=== PATIENT | male | born 1950 | race Caucasian/White ===

== ENCOUNTER → 2016-08-05 | Outpatient (CLI) | payer MEDICARE, OTHER ==
[~2016-08-05] MED LIST: ALPRAZOLAM PO; ANTI INFLAMMATORY; NORCO 10-325 TA1 TAB PO; PEGASYS180 MCG/M1 SQ; REGLAN10 MG PO; XANAX0.5 MG PO; [UNRECOGNIZED DRUG - OTHER] PO
== END | disposition home or self-care (01) ==
LOC: CLAB 13:27
DX: C61 Malignant neoplasm of prostate (principal)
CPT/HCPCS: 36415; 84153

== ENCOUNTER 2016-11-14 10:54 | Emergency (ER) | payer MEDICARE, OTHER ==
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
--- NOTE | ~2016-11-14 | CR72 ---
[facility] A Service of [facility] & [facility] RADIOLOGY TEXT RESULTS PATIENT: TITA CARRION LOCATION: [facility] : 50 UNIT #: [id number] AGE: [address]: Jerome Bailey MD SEX: M ORDER DR: [id number] [facility] [address] [place], [place] [address] [id number] E MR#: [id number] Acc #: [id number] NAME: TITA CARRION : 1950 SEX: M STUDY DATE/TIME: 11/14/2016 12:44 UNIT: [facility] ROOM: STUDY DESCRIPTION: CR Chest Single View Portable Attending Physician: Jerome Bailey M.D. Ordering Physician: Jerome Bailey M.D. Primary Care Physician: Stephanie Amaro M.D. MEDICAL IMAGING REPORT This report is preliminary unless electronic signature is present EXAM Portable chest radiograph. INDICATION Shortness of breath, abdominal pain, and nausea starting today. FINDINGS Heart size is within normal limits. There is some coarsening of the interstitium which is unchanged when compared to prior studies. There is a stable scarring identified at the left lung base, unchanged when compared to February of 2016. No pneumothorax or pleural effusion is seen. No definite acute infiltrates are identified. Dictated by... Lois Jimenes M.D. THIS IS AN ELECTRONICALLY VERIFIED REPORT Lois Jimenes M.D. at 11/14/2016 4:56 PM AFF/tmw TD: 11/14/2016 14:44 JOB #: [id number] MEDICAL IMAGING REPORT Page 1 of 1 COPY
--- NOTE | ~2016-11-14 | EKG ---
PATIENT: TITA CARRION UNIT #: [id number] Ventricular Rate: 76 BPM Atrial Rate: 76 BPM P-R Interval: 184 ms QRS Duration: 84 ms Q-T Interval: 404 ms QTC Calculation(Bezet): 454 ms P [place]: 52 degrees Calculated R [place]: 31 degrees Calculated T [place]: 66 degrees Diagnosis Line: Normal sinus rhythm Diagnosis Line: Normal ECG Diagnosis Line: No previous ECGs available Diagnosis Line: Confirmed by NEHA DOMINGUEZ MD ([id number]) on Diagnosis Line: 11/15/2016 8:00:15 AM INTERPRETING MD: ALBERTO TORREZ
[2016-11-14 12:53] LABS: POC - CKMB 18.6 ng/mL (0.0-7.9); POC - TROPONIN <0.05 ng/mL (<=0.05)
[2016-11-14 12:57] LABS: BASOPHIL% 0.4 % (0-2.5); EOSINOPHIL# 0.2 X10e3 (0-0.7); EOSINOPHIL% 2.5 % (0.0-7.0); HEMATOCRIT 37.1 % (38.0-50.0); HEMOGLOBIN 12.4 gm/dL (13.0-16.0); LYMPHOCYTE# 1.6 X10e3 (1.0-3.5); LYMPHOCYTE% 16.8 % (17.0-45.0); MEAN CELL VOLUME 92.6 FL (83-96); MEAN CORPUSCULAR HEMOGLOBIN 30.9 PG (28-34); MEAN CORPUSCULAR HGB CONC 33.4 g/dL (30-36); MEAN PLATELET VOLUME 7.6 FL (6.5-11.5); MONOCYTE# 0.8 X10e3 (0-1.0); MONOCYTE% 9.1 % (3.0-12.0); NEUTROPHIL# 6.6 X10e3 (1.5-7.1); NEUTROPHIL% 71.2 % (40-75); PLATELET COUNT 272 X10e3 (140-420); RED CELL DISTRIBUTION WIDTH 13.2 % (11.0-15.5); WHITE BLOOD COUNT 9.2 X10e3 (4.0-10.5)
[2016-11-14 13:01] LABS: DIFF IND NO
[2016-11-14 13:24] LABS: ALBUMIN SERUM 3.9 g/dL (3.5-5.0); BILIRUBIN, DIRECT 0.1 mg/dL (0.0-0.2); BILIRUBIN,INDIRECT 0.6 mg/dL (0.0-0.9); BILIRUBIN,TOTAL 0.7 mg/dL (0.2-2.0); BUN/CREATININE RATIO 15.55; CALCIUM SERUM 8.6 mg/dL (8.4-10.2); CREATININE SERUM 1.8 mg/dL (0.6-1.4); GLOM FILT RATE Estimated 38.4 mL/min (>60); POTASSIUM 4.5 mmol/L (3.5-5.1); PROTEIN TOTAL SERUM 7.1 g/dL (6.0-8.3)
[2016-11-14 13:46] LABS: URINE SOURCE CLEAN CATCH
[2016-11-14 14:01] LABS: URINE APPEARANCE CLEAR; URINE BILIRUBIN NEG (NEG); URINE BLOOD NEG (NEG); URINE COLOR YELLOW; URINE GLUCOSE NEG (NEG); URINE KETONE NEG (NEG); URINE LEUKOCYTE ESTERASE NEG (NEG); URINE NITRATE NEG (NEG); URINE PH 6.5 (5-8); URINE PROTEIN 1+ (NEG); URINE SPECIFIC GRAVITY 1.018 (1.003-1.035); URINE UROBILINOGEN 0.2 MG/DL (NEG)
[2016-11-14 14:04] LABS: URBCS1 AUWI 0-2 /[HPF] (0-2); URINE BACTERIA AUWI NEG (NEGATIVE); URINE SQUAMOUS EPITHELIAL CELL NONE SEEN /[HPF]; UWBCS1 AUWI 0-2 (0-5)
[2016-11-14 14:05] LABS: CULTURE INDICATED? NO
[2016-11-14 14:29] LABS: POC - CKMB 11.8 ng/mL (0.0-7.9); POC - TROPONIN <0.05 ng/mL (<=0.05)
== END 2016-11-14 15:52 | disposition home or self-care (01) ==
LOC: CED 10:54
PROVIDERS: Emergency Medicine
DX: R07.81 Pleurodynia (principal); K59.00 Constipation, unspecified; Z88.8 Allergy status to other drugs, medicaments and biological substances; F17.210 Nicotine dependence, cigarettes, uncomplicated
CPT/HCPCS: 36415; 71010; 74176; 80048; 80076; 81003; 82550; 82553; 83690; 84484; 85025; 93005; 96360; 96372; 99285; J0500

== ENCOUNTER → 2017-01-29 | Outpatient (CLI) | payer MEDICARE, OTHER ==
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
== END | disposition home or self-care (01) ==
LOC: CGUS 08:12
DX: B18.2 Chronic viral hepatitis C (principal); R93.422 Abnormal radiologic findings on diagnostic imaging of left kidney; K76.0 Fatty (change of) liver, not elsewhere classified; R16.0 Hepatomegaly, not elsewhere classified; I70.0 Atherosclerosis of aorta; Z90.49 Acquired absence of other specified parts of digestive tract
CPT/HCPCS: 76700